=== PATIENT | female | born 1990 | race Caucasian/White ===

== ENCOUNTER 2017-02-27 09:12 | Emergency (ER) | payer SELFPAY ==
[~2017-02-27] VITALS: Ht 172.7 cm; Wt 78.0 kg
[2017-02-27] MEDS ORDERED: ONDANSETRON ODT 4 MG ONE (09:51)
[2017-02-27] MEDS ORDERED: ONDANSETRON ODT 4 MG PO ONE (10:00)
[2017-02-27 12:27] VITALS: BP 124/76
[2017-02-27] MEDS ORDERED: ACETAMINOPHEN 325 MG TABLET ONE (12:50)
[2017-02-27] MEDS ORDERED: ACETAMINOPHEN 325 MG TABLET PO ONE (13:00)
== END 2017-02-27 12:58 | disposition home or self-care (01) ==
LOC: ED 12:52
DX: F10.121 Alcohol abuse with intoxication delirium (principal)
CPT/HCPCS: 99283; Q0162